=== PATIENT | female | born 1960 | race Caucasian/White ===

== ENCOUNTER 2021-10-17 12:00 | Day surgery (SDC) | payer BC ==
[2021-10-14 14:16] LABS: Hematocrit 36.9 % (36.0-45.0); Lymphocytes % 28.5 % (15.3-44.8); MPV 7.3 fL (7.6-11.3); RBC Red Blood Cell Count 4.32 M/uL (3.86-4.86)
[2021-10-14 14:17] LABS: Absolute Lymphocytes (CBC) 2.4 K/uL (0.7-4.9)
[2021-10-14 14:24] LABS: Protime INR 1.09
[2021-10-14 14:30] LABS: Potassium 4.6 mmol/L (3.5-5.1)
--- NOTE | 2021-10-14 15:19 | RAD REPORT ---
EXAM DESCRIPTION: RAD - Chest Pa And Lat (2 Views) - 10/14/2021 2:31 pm CLINICAL HISTORY: Pre op pending heart cath Chest pain. COMPARISON: CHEST PA AND LAT 2 VIEW dated 07/05/2010; CHEST PA AND LAT 2 VIEW dated 05/09/2008; CHEST P A AND LAT 2 VIEW dated 04/21/2002 FINDINGS: The lungs are clear. The heart is normal in size. No displaced fractures. IMPRESSION: No acute or concerning finding suspected.
[~2021-10-17 12:00] MED LIST: HEPA 1000U/500MLS 2,000 UNIT/1,000 ML BAG IV ONE
[2021-10-17] MEDS ORDERED: NA CHLORIDE 0.9% 500 ML ONE (13:40)
[2021-10-17 14:12] VITALS: TEMP 97.4
[2021-10-17] MEDS ORDERED: ATROPINE SULF 1 MG/10 ML SYR IV ONE (15:23)
[2021-10-17] MEDS ORDERED: HEPARIN 5000 UNIT/ML 1 ML VIAL ONE (15:24)
[2021-10-17] MEDS ORDERED: FENTANYL CITR 100 MCG/2 ML ONE (15:24)
[2021-10-17] MEDS ORDERED: VERAPAMIL HCL 10 MG/4 ML VIAL IV ONE (15:25)
[2021-10-17] MEDS ORDERED: MIDAZOLAM HCL 2 MG/2 ML INJ ONE (15:25)
[2021-10-17] MEDS ORDERED: NITROGLYCERIN 100 MCG/ML SYR (for cath lab use only) IV ONE (15:26)
[2021-10-17] MEDS ORDERED: LIDOCAINE 1% 20 ML MDV ONE (15:26)
[2021-10-17 17:52] VITALS: O2SAT 99
[2021-10-17 18:16] VITALS: BP 113/65
--- NOTE | 2021-10-18 04:21 | OP ---
Date of Procedure: 10/17/2021 Surgeon: CECI SMITH Procedure Performed: Selective coronary angiogram. Indication: Abnormal stress test. Access: Right radial artery 6-Burkinan, closed with TR band. Complications: None. Bleeding: Less than 10 mL. Description Of Procedure: After risks, benefits, and alternatives were explained, the patient agreed to proceed and signed informed consent. The patient was brought to the cardiac catheterization [facility], prepped and draped in usual sterile fashion, used fentanyl and Versed in incremental doses to achieve adequate moderate sedation. Then, access to right radial artery using pediatric micropunctu re kit and placed a 6-Burkinan Slender sheath and took 5-Burkinan Gaston 4.0 catheter into the aortic root , engaged the left main and right coronary artery, took standard views, and then removed the catheter and sheath removed, placed TR band with good hemostasis. Findings: 1.Left main, large and normal. 2.LAD, moderate-sized and normal, normal diagonal branches. 3.Left circumflex is a codominant circulation, large and normal. 4.RCA, codominant circulation and normal. Conclusion: Normal coronary arteries. Plan: Medical management. SR/MODL Voice ID: [id number] Report ID: [id number]
== END 2021-10-17 18:19 | disposition home or self-care (01) ==
LOC: CCL 12:00
PROVIDERS: ATTEND Internal Medicine
DX: R94.39 Abnormal result of other cardiovascular function study (principal); R00.2 Palpitations; I10 Essential (primary) hypertension; E78.5 Hyperlipidemia, unspecified; Z20.822 Contact with and (suspected) exposure to COVID-19
CPT/HCPCS: 85025; 80048; 36415; 85610; 85730; 71046; 93458; U0003; C1893; J1644 ×2; J2250; J3010; J7040